=== PATIENT | female | born 1970 | race Caucasian/White ===

== ENCOUNTER 2016-07-20 09:45 | Emergency (ER) | payer MEDICARE ==
[~2016-07-20 09:45] MED LIST: ALEVE220 MG PO; ALORA0.1 MG TD; AMIT100 PO; AMIT50 PO; APRES50 PO; BEN25 PO; BENADRYL 50 MG50 MG PO; BIST PO; CAT1 PO; CEFADROXIL1 GM PO; CIPRO (10%) PO; COREG12 PO; COREG6 PO; ESTRADIOL0.1 MG PO; FISH OIL PO; FLONASE; IBU-200200 MG PO; K500 PO; LEVAQUIN5T PO; LISINOPRIL40 MG PO; LOP100 PO; LOP50 PO; LORT7 PO; MELA3 PO; MUCINEX DM1 TAB OR; MUCINEX1200 MG PO; MULTIVITAMI1 PO; NASACORTAQ NAS; NORCO1 TAB PO; PR25 PO; PREM9 PO; PREMARIN PO; PROAIR HFA INH; PROTONIX PO; PROZAC PO; PROZAC40 MG PO; PVC V; REM15 PO; TOPXL100 PO; TRAZ50 PO; TRAZODONE150 MG PO; V5 PO; VENTOLIN HFA INH; VIVELLE SY0.05 MG/24 TOP; VIVELLE SY0.1 MG/24 TOP; WELLSR150 PO; ZANAFLEX 4 MG TA4 MG PO; ZESTRIL10 MG PO; ZYRTEC ALLGY10 MG PO; probiotic
[2016-07-20 09:53] LABS: BASOPHILS 0.8 %; EOSINOPHILS 0.7 %; EOSINOPHILS ABSOLUTE 0.09 10/3/uL (0.0-0.53); HEMATOCRIT 40.6 % (36.0-48.0); HEMOGLOBIN 12.9 g/dL (12.0-16.0); IMMATURE GRANULOCYTES 0.4 %; IMMATURE GRANULOCYTES ABSOLUTE 0.05 10/3/uL (0.0-0.11); LYMPHOCYTES 33.4 %; LYMPHOCYTES ABSOLUTE 4.41 10/3/uL (0.67-4.30); MANUAL DIFF NO %; MEAN CORPUS HGB CONC 31.8 g/dL (32.0-36.0); MEAN CORPUSCULAR HEMOGLOB 28.6 pg (26.0-34.0); MONOCYTES 7.4 %; MONOCYTES ABSOLUTE 0.98 10/3/uL (0.21-1.20); NEUTROPHILS 57.3 %; NEUTROPHILS ABSOLUTE 7.56 10/3/uL (2.02-8.40); PLATELET COUNT 367 10/3/uL (150-400); RED CELL COUNT 4.51 10/6/uL (4.0-5.6); WHITE BLOOD CELLS 13.2 10/3/uL (4.5-10.5)
[2016-07-20 10:09] LABS: A/G RATIO 0.8 (0.7-1.9); ALBUMIN 3.6 G/DL (3.5-5.0); ALKALINE PHOSPHATASE 109 U/L (45-117); BUN (BLOOD UREA NITROGEN) 12 MG/DL (6-23); CALCIUM, SERUM 9.1 MG/DL (8.5-10.4); CHLORIDE, SERUM 101 MMOL/L (96-112); CO2 (CARBON DIOXIDE) 29 MMOL/L (24-34); CREATININE 0.89 MG/DL (0.55-1.02); GFR AFRICAN AMERICAN 90 ML/MIN (>=60); GFR NON AFRICAN AMERICAN 78 ML/MIN (>=60); GLOBULIN 4.3 G/DL (2.5-4.1); GLUCOSE, SERUM 105 MG/DL (60-99); POTASSIUM, SERUM 3.7 MMOL/L (3.5-5.3); SGOT(AST) 38 U/L (5-40); SGPT(ALT) 53 U/L (5-65); SODIUM, SERUM 139 MMOL/L (135-148); TOTAL BILIRUBIN 0.3 MG/DL (0-1.2); TOTAL PROTEIN 7.9 G/DL (6.0-8.5)
[2016-07-20 10:11] LABS: ASCORBIC ACID (UR NOT ORDER) NEG (NEG); BILIRUBIN, URINE NEGATIVE (NEG); ER URINALYSIS TAT 0 Hrs 24 Mins; KETONE, URINE NEGATIVE (NEG); LEUKOCYTE ESTERASE(NOT OR NEG (NEG); NITRITE (URINE) NEG (NEG); WBC (NOT ORDERED) (RFLEX) 7 (0-5)
== END 2016-07-20 11:55 | disposition home or self-care (01) ==
LOC: ER 09:45
PROVIDERS: Nurse Practitioner
DX: R10.9 Unspecified abdominal pain (principal); I12.9 Hypertensive chronic kidney disease with stage 1 through stage 4 chronic kidney disease, or unspecified chronic kidney disease; N18.9 Chronic kidney disease, unspecified; E11.22 Type 2 diabetes mellitus with diabetic chronic kidney disease; Z87.442 Personal history of urinary calculi; J45.909 Unspecified asthma, uncomplicated; Z88.0 Allergy status to penicillin; Z88.6 Allergy status to analgesic agent; Z88.5 Allergy status to narcotic agent; Z88.8 Allergy status to other drugs, medicaments and biological substances; Z79.899 Other long term (current) drug therapy
CPT/HCPCS: 74176; 80053; 81001; 83690; 85025; 96374; 96375; 99285; J2405